=== PATIENT | female | born 1995 | race Caucasian/White ===

== ENCOUNTER 2022-07-23 22:26 | Emergency (ER) | payer MEDICAID ==
--- NOTE | 2022-07-23 22:30 | ERPHSYRPT ---
- History of Present Illness Time Seen by Provider: 07/23/22 22:30 Source: patient Exam Limitations: no limitations Physician History: This is a right handed white female who went to catch a softball with her left hand and it hit her left thumb and wrist. The pain persisted and she was concerned that she may have a dislocated or fractured wrist bone. Occurred: just prior to arrival Method of Injury: direct blow Quality: constant, aching Severity of Pain-Max: moderate Severity of Pain-Current: moderate Extremities Pain Location: wrist: left Modifying Factors: Improves With: movement Associated Symptoms: none Allergies/Adverse Reactions: No Known Drug Allergies Allergy (Unverified 07/23/22 22:31) Home Medications: Sertraline HCl 50 mg [Zoloft 50 mg Tablet] 50 mg PO DAILY 07/23/22 [History] - Nursing Vital Signs Nursing Vital Signs: Initial Vital Signs Temperature 98.2 F 07/23/22 22:32 Pulse Rate 109 H 07/23/22 22:32 Respiratory Rate 18 07/23/22 22:32 Blood Pressure 130/75 07/23/22 22:32 O2 Sat by Pulse Oximetry 100 07/23/22 22:32 Pain Scale Pain Intensity 7 - Physical Exam General Appearance: no apparent distress, alert, anxiety Eyes, Ears, Nose, Throat Exam: normal ENT inspection, moist mucous membranes Neck Exam: normal inspection, non-tender, supple, full range of motion Cardiovascular/Respiratory Exam: chest non-tender, no respiratory distress Abdominal Exam: non-tender Back Exam: normal inspection, normal range of motion, No CVA tenderness, No vertebral tenderness Shoulder Exam: normal inspection, non-tender, no evidence of injury, normal ROM Elbow/Forearm Exam: normal inspection, non-tender, no evidence of injury, normal ROM Wrist Exam: normal inspection, no evidence of injury, soft tissue tenderness Hand Exam: normal inspection, non-tender, no evidence of injury, normal ROM Neuro/Tendon Exam: normal sensation, normal motor functions, normal tendon functions, responds to pain, no evidence tendon injury Mental Status Exam: alert, oriented x 3 Skin Exam: normal color, warm, dry SpO2 Interpretation: normal O2 Delivery: Room Air - Course Nursing assessment & vital signs reviewed: Yes Ordered Tests: Active Orders 24 hr Category Date Time Status Splint STAT Care 07/23/22 23:16 Active WRIST (MIN 3 VIEWS) Stat Exams 07/23/22 Ordered - Progress Progress: unchanged Progress Note: 07/23/22 23:19 X-ray of left wrist reveals no acute fracture or dislocation. Counseled pt/family regarding: diagnosis, need for follow-up, rad results - Departure Departure Disposition: Home Clinical Impression: Contusion of left wrist Condition: Stable Critical Care Time: No Referrals: KEYANNA GONZALEZ [Primary Care Provider] - Follow up/PCP as directed Additional Instructions: Ice bath left hand and wrist 3 times a day for next 48 hours. Use ibuprofen and Tylenol for pain control. Wear the splint for comfort. Follow-up at the [facility] orthopedic clinic Tuesday through Tuesday 8 AM to 10 AM if after 72 hours there is no improvement in your symptoms. It is a walk-in clinic and you do not need to have an appointment.
[2022-07-23 22:40] VITALS: BP 130/75; PULSE 109; O2SAT 100
--- NOTE | 2022-07-24 09:08 | XRAY ---
Indication: Pain following softball injury. Comparison: None 3 view left wrist demonstrates normal bones, articulation, and soft tissues.
== END 2022-07-23 23:31 | disposition home or self-care (01) ==
LOC: ED 22:26
DX: S60.212A Contusion of left wrist, initial encounter (principal); W21.07XA Struck by softball, initial encounter; Y93.64 Activity, baseball; M25.532 Pain in left wrist; M79.645 Pain in left finger(s); Z79.899 Other long term (current) drug therapy
CPT/HCPCS: 73110; 99283; L3908

== ENCOUNTER 2022-12-13 07:40 | Emergency (ER) | payer MEDICAID, OTHER ==
[2022-12-13 07:51] VITALS: BP 122/58
[2022-12-13] MEDS ORDERED: TORAdol 30 mg Injection IM ONE (07:54)
[2022-12-13] MEDS ORDERED: TORAdol 30 mg Injection ONE (07:58)
--- NOTE | 2022-12-13 08:36 | XRAY ---
Indication: Low back pain. No known injury. Comparison: None 3 view lumbar spine demonstrates 5 lumbar segments in normal alignment with vertebral body heights/disc spaces maintained. Incidental tiny L3-L5 Schmorl nodes. No bony, articular, or soft tissue abnormalities.
[2022-12-13] MEDS ORDERED: DECADRON 10MG INJ. IM ONE (08:47)
--- NOTE | 2022-12-13 08:47 | ERPHSYRPT ---
- History of Present Illness Time Seen by Provider: 12/13/22 08:10 Source: patient Exam Limitations: no limitations Patient Subjective Stated Complaint: pt here for lower back pain since last night, worse after getting out of bed this morning and taking steps. no injury, Triage Nursing Assessment: pt alert, helped out of car and in wc, able to take a few steps, holding back at times, skin w/d/p. resp easy, Physician History: Patient is [id number] female presents to emergency department for evaluation of low back pain. Symptoms started yesterday. Patient felt a slight twinge in her low back as she was getting into her vehicle. Later that evening she played with her children and felt somewhat uncomfortable. Today pain worsened as she was getting out of bed. Pain described as an ache that is localized to her low back. Pain primarily in the midline area. Pain reproduced with movement. Pain improved with rest. Pain is localized however she occasionally feels a shooting pain into her lower buttock upper leg area. No fever. No blunt trauma. No falls. No injuries. No recent back procedures. No change in bowel bladder function. No saddle anesthesia. Pain worse with movement and ambulation. Pain improves with rest. Patient denies a history of back pain. She voices no other complaints or concerns at this time. Portions of this note were created with voice recognition technology. There may be grammatical, spelling, punctuation or sound alike errors Timing/Duration: yesterday Method of Injury: bending Quality: other (Ache/shooting pain) Back Pain Location: lumbar spine Severity of Pain-Max: moderate Severity of Pain-Current: mild Modifying Factors: Improves With: movement Associated Symptoms: denies symptoms, No fever, No urinary incontinence, No loss of bowel control, No nausea, No vomiting, No problems urinating, No light- headedness, No numbness in legs/feet, No weakness, No sensory/motor loss, No tingling in legs/feet Previous symptoms: no prior history Allergies/Adverse Reactions: No Known Drug Allergies Allergy (Verified 12/13/22 07:52) Home Medications: Sertraline HCl 50 mg [Zoloft 50 mg Tablet] 50 mg PO DAILY 07/23/22 [History] Norgestimate-Ethinyl Estradiol [Femynor 28 Tablet] 1 ea DAILY 12/13/22 [History] Semaglutide [Ozempic] 2 mg SQ DAILY 12/13/22 [History] Hx Tetanus, Diphtheria Vaccination/Date Given: Yes Hx Influenza Vaccination/Date Given: Yes Hx Pneumococcal Vaccination/Date Given: No Immunizations Up to Date: Yes Travel Risk - International Travel Have you traveled outside of the country in past 3 weeks: No - Coronavirus Screening Are you exhibiting any of the following symptoms?: No Close contact with a COVID-19 positive Pt in past 14-21 Days: No - Vaccine Status Have you recieved a Covid-19 vaccination: No - Review of Systems Constitutional: No Symptoms, No Fever, No Chills Eyes: No Symptoms Ears, Nose, & Throat: No Symptoms Respiratory: No Symptoms, No Cough, No Dyspnea Cardiac: No Symptoms, No Chest Pain, No Edema, No Syncope Abdominal/Gastrointestinal: No Symptoms, No Abdominal Pain, No Nausea, No Vomiting, No Diarrhea Genitourinary Symptoms: No Symptoms, No Dysuria Musculoskeletal: No Symptoms, No Back Pain, No Neck Pain Skin: No Symptoms, No Rash Neurological: No Symptoms, No Dizziness, No Focal Weakness, No Sensory Changes Psychological: No Symptoms Endocrine: No Symptoms Hematologic/Lymphatic: No Symptoms Immunological/Allergic: No Symptoms All Other Systems: Reviewed and Negative - Past Medical History Pertinent Past Medical History: Yes Psycho-Social History: Anxiety, Depression - Past Surgical History Past Surgical History: No - Social History Smoking Status: Never smoker Exposure to second hand smoke: No Drug Use: none Patient Lives Alone: No - Female History Hx Last Menstrual Period: week ago Hx Now: No - Nursing Vital Signs Nursing Vital Signs: Initial Vital Signs Temperature 96.9 F 12/13/22 07:50 Pulse Rate 100 H 12/13/22 07:50 Respiratory Rate 18 12/13/22 07:50 Blood Pressure 122/58 12/13/22 07:50 O2 Sat by Pulse Oximetry 96 12/13/22 07:50 Pain Scale Pain Intensity [Back] 6 Pain Intensity 5 - Physical Exam General Appearance: no apparent distress, alert Eye Exam: PERRL/EOMI, eyes nml inspection Neck Exam: normal inspection, non-tender, supple, full range of motion, No meningismus, No midline tenderness Respiratory Exam: normal breath sounds, lungs clear, No respiratory distress Cardiovascular Exam: regular rate/rhythm, normal heart sounds Gastrointestinal Exam: soft, No tenderness, No mass Back Exam: other (Tenderness to palpation to lumbar paraspinal musculature. Patient observed to experience guarded motion particularly due to low back pain with bilateral lumbar paraspinal musculature spasm) Extremity Exam: normal inspection, normal range of motion, No calf tenderness, No pedal edema Peripheral Pulses: dorsalis-pedis (R): 2+, dorsalis-pedis (L): 2+ Neurologic Exam: alert, oriented x 3, cooperative, inclusion teacher II-XII nml as tested, normal mood/affect, nml station & gait, sensation nml, other (Antalgic gait pattern due to low back pain), No motor deficits Skin Exam: normal color, warm, dry, No rash Lymphatic Exam: No adenopathy SpO2 Interpretation: normal SpO2: 96 O2 Delivery: Room Air - Course Nursing assessment & vital signs reviewed: Yes - Radiology Exams L-Spine X-ray Interpretation: Interpreted by me (No fracture or dislocation. No soft tissue abnormalities. Straightening of lumbar spine positional versus spasm.) Ordered Tests: Active Orders 24 hr Category Date Time Status LUMBAR LIMITED (2 OR 3 VIEWS) Stat Exams 12/13/22 08:15 Completed UA W/RFX UR CULTURE Stat Lab 12/13/22 08:46 Completed Medication Summary Discontinued Medications Generic Name Dose Route Start Last Admin Trade Name Aby PRN Reason Stop Dose Admin Dexamethasone Sodium Phosphate 10 mg 12/13/22 08:47 12/13/22 08:51 Dexamethasone Sod Phosphate 10 Mg/Ml IM 12/13/22 08:48 10 mg STAT ONE Administration Dexamethasone Sodium Phosphate Confirm 12/13/22 08:50 Dexamethasone Sod Phosphate 10 Mg/Ml Administered 12/13/22 08:51 Dose 10 mg .ROUTE .STK-MED ONE Ketorolac Tromethamine 30 mg 12/13/22 07:54 12/13/22 08:00 Ketorolac Tromethamine 30 Mg/Ml Inj IM 12/13/22 07:55 30 mg STAT ONE Administration Ketorolac Tromethamine Confirm 12/13/22 07:58 Ketorolac Tromethamine 30 Mg/Ml Inj Administered 12/13/22 07:59 Dose 30 mg .ROUTE .STK-MED ONE Lab/Rad Data: Laboratory Results 12/13/22 Range/Units 08:46 Urine Color Yellow (Yellow) Urine Appearance Clear (Clear) Urine pH 7.5 (4.6-8.0) Ur Specific Evans 1.010 (1.005-1.030) Urine Protein Negative (Negative) Urine Glucose (UA) Negative (Negative) mg/dL Urine Ketones Negative (Negative) Urine Blood Negative (Negative) Urine Nitrite Negative (Negative) Urine Bilirubin Negative (Negative) Urine Urobilinogen 1.0 A (0.2) mg/dL Ur Leukocyte Esterase Negative (Negative) U Hyaline Cast (Auto) NONE SEEN (0-2) /LPF Urine Microscopic RBC 0-2 (0-5) /HPF Urine Microscopic WBC 0-2 (0-5) /HPF Ur Epithelial Cells None Seen (None Seen) /HPF Urine Bacteria None Seen (None Seen) /HPF Urine Culture Reflexed NO (NO) - Progress Progress: improved Progress Note: Patient is 27-year-old female presents to our ED for evaluation of acute back pain. Physical exam significant for tenderness along the bilateral lumbar paraspinal musculature. Complexity of patient's complaint is moderate. Patient's body habitus/BMI 49.7 is likely contributing factor. X-ray lumbar spine ordered. No fracture or dislocation. No soft tissue abnormalities. Straightening of the lumbar lordosis likely due to muscle spasm. Urinalysis negative for UTI. The results of patient's studies were used in medical decision-making. Patient received Toradol and Decadron for pain control. Patient was positioned in bed supine with a pillow under her knees as a bolster to relieve pressure on her low back as a measure to help alleviate back pain. Plan of care discussed with patient. She agrees to follow-up with her primary care doctor within 48 hours for evaluation. Patient has the ability to access/comply with treatment plan. Level of EM service provided was moderate. Complexity of patient's medical problem is mild to moderate. Complexity of data reviewed is moderate. Risk of complications, morbidity/mortality is moderate. No critical care time. Patient served as an independent historian. Portions of this note were created with voice recognition technology. There may be grammatical, spelling, punctuation or sound alike errors 12/13/22 10:14 Counseled pt/family regarding: diagnosis - Departure Departure Disposition: Home Clinical Impression: Lumbosacral strain, Low back pain, Muscle spasm Condition: Stable Critical Care Time: No Referrals: KEYANNA GONZALEZ [Primary Care Provider] - Follow up/PCP as directed Additional Instructions: Discharge/Care Plan CHINO OLIVO was seen on 12/13/22 in the Emergency Room. The patient was counseled regarding Diagnosis,Lab results, Imaging studies, need for follow up and when to return to the Emergency Room. Prescriptions given: Discharge Note I have spoken with the patient and/or caregivers. I have explained the patient's condition, diagnosis and treatment plan based on the information available to me at this time. I have answered the patient's and/or caregiver's questions and addressed any concerns. The patient and/or caregivers have as good understanding of the patient's diagnosis, condition and treatment plan as can be expected at this point. The vital signs have been stable. The patient's condition is stable and appropriate for discharge from the emergency department. The patient will pursue further outpatient evaluation with the primary care physician or other designated or consulting physician as outlined in the discharge instructions. The patient and/or caregivers are agreeable to this plan of care and follow-up instructions have been explained in detail. The patient and/or caregivers have received these instruction. The patient/and or caregivers are aware that any significant change in condition or worsening of symptoms should prompt an immediate return to this or the closest emergency department or call 911.
[2022-12-13] MEDS ORDERED: DECADRON 10MG INJ. ONE (08:50)
[2022-12-13 09:06] LABS: Appearance Clear (Clear); Bacteria None Seen /HPF (None Seen); Bilirubin Negative (Negative); Blood Negative (Negative); Epithelial Cells None Seen /HPF (None Seen); Glucose, Urine Negative (Negative); Hyaline Casts NONE SEEN /LPF (0-2); Ketones Negative (Negative); Leukocyte Esterase Negative (Negative); Nitrite Negative (Negative); Ph 7.5 (4.6-8.0); Protein,Urine Dip Negative (Negative); RBC 0-2 /HPF (0-5); WBC 0-2 /HPF (0-5)
[2022-12-13 09:09] LABS: ADD URINE CULTURE? NO (NO)
[2022-12-13 09:54] VITALS: PULSE 82
[2022-12-13 10:09] VITALS: O2SAT 96
== END 2022-12-13 10:25 | disposition home or self-care (01) ==
LOC: ED 07:40
DX: S39.012A Strain of muscle, fascia and tendon of lower back, initial encounter (principal); X50.0XXA Overexertion from strenuous movement or load, initial encounter; M62.830 Muscle spasm of back; Z79.85 Long-term (current) use of injectable non-insulin antidiabetic drugs; Z79.899 Other long term (current) drug therapy; Z28.310 Unvaccinated for COVID-19
CPT/HCPCS: 72100; 81001; 96372; 99283; J1100; J1885

== ENCOUNTER 2023-08-02 17:32 | Emergency (ER) | payer OTHER ==
[2023-08-02 18:14] VITALS: TEMP 97.9; O2SAT 100
[2023-08-02 19:11] LABS: HCG URINE TEST NEGATIVE (NEGATIVE)
[2023-08-02 19:15] LABS: Absolute Neutrophil Ct (ANC) 3.48 x10^3/uL (1.4-6.9); BASOPHIL % 0.5 % (0.0-0.4); Basophil (Absolute #) 0.03 x10^3/uL (0-0.4); Eosinophil % 1.5 % (0.00-5.0); Eosinophil (Absolute #) 0.09 x10^3/uL (0-0.5); Hematocrit 39.9 % (35-47); Hemoglobin 12.4 g/dL (12.0-16.0); IMMATURE GRAN # 0.05 x10^3u/L (0.00-0.03); IMMATURE GRAN % 0.8 % (0.00-0.4); Lymphocyte (Absolute #) 1.98 x10^3/uL (1.0-4.6); Lymphocytes % 32.2 % (24.0-44.0); Mean Cell Volume 86.9 fL (78-100); Mean Corpuscular Hgb Concent. 31.1 g/dL (32-36); Mean Platelet Volume 9.3 fL (7.5-11.0); Monocyte (Absolute #) 0.51 x10^3/uL (0.0-1.3); Monocytes % 8.3 % (0.0-12.0); Neutrophil % 56.7 % (36.0-66.0); Platelet Count 307 x10^3/uL (150-450); Red Blood Count 4.59 x10^6/uL (4.1-5.4); Red Cell Distribution Width 13.3 % (11.5-14.0); White Blood Count 6.1 x10^3/uL (4.0-10.5)
[2023-08-02 19:15] LABS: Appearance Cloudy (Clear); Bilirubin Negative (Negative); Blood Negative (Negative); Epithelial Cells Moderate /HPF (None Seen); Glucose, Urine Negative (Negative); Hyaline Casts NONE SEEN /LPF (0-2); Ketones Trace (Negative); Leukocyte Esterase Trace (Negative); Nitrite Negative (Negative); Ph 5.5 (4.6-8.0); Protein,Urine Dip Trace (Negative); RBC 0-2 /HPF (0-5); Specific Gravity >=1.030 (1.005-1.030)
[2023-08-02 19:17] LABS: ADD URINE CULTURE? NO (NO); Bacteria Rare /HPF (None Seen)
[2023-08-02 19:30] LABS: ALBUMIN 3.8 g/dL (3.5-5.0); ALKALINE PHOSPHATASE 79 U/L (38-126); ANION GAP 12.4 MEQ/L (5-15); BLOOD UREA NITROGEN 14 mg/dL (7-17); CHLORIDE 103 mmol/L (98-107); Calcium 8.9 mg/dL (8.4-10.2); Carbon Dioxide 26 mmol/L (22-30); Creatinine 1 0.65 mg/dL (0.52-1.04); EST GLOMERULAR FILTRATION RATE > 60.0 ML/MIN; Glucose 88 mg/dL (74-106); Potassium 3.6 mmol/L (3.5-5.1); SGOT/AST 23 U/L (14-36); SGPT/ALT 21 U/L (0-35); SODIUM 138 mmol/L (137-145); Total Protein 7.1 g/dL (6.3-8.2)
--- NOTE | 2023-08-02 20:48 | ERPHSYRPT ---
- History of Present Illness Time Seen by Provider: 08/02/23 18:20 Historian: patient Exam Limitations: no limitations Patient Subjective Stated Complaint: pt here for right sided abd pain today with nausea, no fever, states sharp stabbing pain Triage Nursing Assessment: pt alert, resp easy, skin w/d/p.walked in, abd soft, bs x4 , tender to touch Physician History: Patient is a 28-year-old female presents to our ED for evaluation of 1 day history of right lower quadrant pain. Pain described as a sharp stabbing sensa tion. No trauma. No fever. Patient has no urinary complaints. Mild nausea. No vomiting. No diarrhea. No rash. Pain worse with palpation. Pain improved with rest. Patient voices no other complaints or concerns at this time. Portions of this note were created with voice recognition technology. There may be grammatical, spelling, punctuation or sound alike errors Timing/Duration: today Activities at Onset: none Quality: aching Abdominal Pain Onset Location: RLQ Pain Radiation: no radiation Severity of Pain-Max: moderate Severity of Pain-Current: mild Modifying Factors: Improves With: nothing Associated Symptoms: nausea Previous symptoms: no prior history Allergies/Adverse Reactions: No Known Drug Allergies Allergy (Verified 08/02/23 18:12) Home Medications: Sertraline HCl 50 mg [Zoloft 50 mg Tablet] 50 mg PO DAILY 07/23/22 [History] norgestimate-ethinyl estradioL [Femynor 28 Tablet] 1 ea DAILY 12/13/22 [History] Hx Tetanus, Diphtheria Vaccination/Date Given: Yes Hx Influenza Vaccination/Date Given: No Hx Pneumococcal Vaccination/Date Given: No Immunizations Up to Date: Yes Travel Risk - International Travel Have you traveled outside of the country in past 3 weeks: No - Coronavirus Screening Are you exhibiting any of the following symptoms?: No Close contact with a COVID-19 positive Pt in past 14-21 Days: No - Vaccine Status Have you recieved a Covid-19 vaccination: No - Review of Systems Constitutional: No Symptoms, No Fever, No Chills Eyes: No Symptoms Ears, Nose, & Throat: No Symptoms Respiratory: No Symptoms, No Cough, No Dyspnea Cardiac: No Symptoms, No Chest Pain, No Edema, No Syncope Abdominal/Gastrointestinal: No Symptoms, No Abdominal Pain, No Nausea, No Vomiting, No Diarrhea Genitourinary Symptoms: No Symptoms, No Dysuria Musculoskeletal: No Symptoms, No Back Pain, No Neck Pain Skin: No Symptoms, No Rash Neurological: No Symptoms, No Dizziness, No Focal Weakness, No Sensory Changes Psychological: No Symptoms Endocrine: No Symptoms Hematologic/Lymphatic: No Symptoms Immunological/Allergic: No Symptoms All Other Systems: Reviewed and Negative - Past Medical History Pertinent Past Medical History: No Psycho-Social History: Anxiety, Depression - Past Surgical History Past Surgical History: No - Social History Smoking Status: Never smoker Exposure to second hand smoke: No Drug Use: none Patient Lives Alone: No - Female History Hx Last Menstrual Period: week agp Hx Now: No - Nursing Vital Signs Nursing Vital Signs: Initial Vital Signs Temperature 97.9 F 08/02/23 18:13 Pulse Rate 87 08/02/23 18:13 Respiratory Rate 18 08/02/23 18:13 Blood Pressure 139/83 08/02/23 18:13 O2 Sat by Pulse Oximetry 100 08/02/23 18:13 Pain Scale Pain Intensity 5 - Physical Exam General Appearance: no apparent distress, alert Eye Exam: PERRL/EOMI, eyes nml inspection Ears, Nose, Throat Exam: normal ENT inspection, pharynx normal, moist mucous membranes Neck Exam: normal inspection, non-tender, supple, full range of motion Respiratory Exam: normal breath sounds, lungs clear, airway intact, No respiratory distress Cardiovascular Exam: regular rate/rhythm, normal heart sounds, normal peripheral pulses Gastrointestinal/Abdomen Exam: soft, No tenderness, No mass Back Exam: normal inspection, normal range of motion, No CVA tenderness, No vertebral tenderness Extremity Exam: normal inspection, normal range of motion, pelvis stable Neurologic Exam: alert, oriented x 3, cooperative, normal mood/affect, nml cerebellar function, sensation nml, No motor deficits Skin Exam: normal color, warm, dry Lymphatic Exam: No adenopathy SpO2 Interpretation: normal SpO2: 100 O2 Delivery: Room Air - Course Nursing assessment & vital signs reviewed: Yes - CT Exams Abdomen/Pelvis CT Interpretation: Tele-radiologist Report (No comps. Normal appendectomy. Mild diverticulosis. Otherwise negative abdomen pelvis) Ordered Tests: Active Orders 24 hr Category Date Time Status IV Insertion STAT Care 08/02/23 18:55 Active ABDOMEN AND PELVIS W/0 CONTRAS [CT] Stat Exams 08/02/23 18:56 Taken CBC W DIFF Stat Lab 08/02/23 19:12 Completed CMP Stat Lab 08/02/23 19:12 Completed HCG QUALITATIVE, URINE Stat Lab 08/02/23 19:00 Completed UA W/RFX UR CULTURE Stat Lab 08/02/23 19:00 Completed Lab/Rad Data: Laboratory Result Diagrams 08/02/23 19:12 08/02/23 19:12 Laboratory Results 08/02/23 08/02/23 08/02/23 Range/Units 19:12 19:12 19:00 WBC 6.1 (4.0-10.5) x10^3/uL RBC 4.59 (4.1-5.4) x10^6/uL Hgb 12.4 (12.0-16.0) g/dL Hct 39.9 (35-47) % MCV 86.9 (78-100) fL MCH 27.0 (26-32) pg MCHC 31.1 L (32-36) g/dL RDW 13.3 (11.5-14.0) % Plt Count 307 (150-450) x10^3/uL MPV 9.3 (7.5-11.0) fL Gran % 56.7 (36.0-66.0) % Immature Gran % (Auto) 0.8 H (0.00-0.4) % Nucleat RBC Rel Count 0.0 (0.00-0.1) % Eos # (Auto) 0.09 (0-0.5) x10^3/uL Immature Gran # (Auto) 0.05 H (0.00-0.03) x10^3u/L Absolute Lymphs (auto) 1.98 (1.0-4.6) x10^3/uL Absolute Monos (auto) 0.51 (0.0-1.3) x10^3/uL Absolute Nucleated RBC 0.00 (0.00-0.01) x10^3u/L Lymphocytes % 32.2 (24.0-44.0) % Monocytes % 8.3 (0.0-12.0) % Eosinophils % 1.5 (0.00-5.0) % Basophils % 0.5 (0.0-0.4) % Absolute Granulocytes 3.48 (1.4-6.9) x10^3/uL Basophils # 0.03 (0-0.4) x10^3/uL Sodium 138 (137-145) mmol/L Potassium 3.6 (3.5-5.1) mmol/L Chloride 103 (98-107) mmol/L Carbon Dioxide 26 (22-30) mmol/L Anion Gap 12.4 (5-15) MEQ/L BUN 14 (7-17) mg/dL Creatinine 0.65 (0.52-1.04) mg/dL Estimated GFR > 60.0 ML/MIN Glucose 88 (74-106) mg/dL Calcium 8.9 (8.4-10.2) mg/dL Total Bilirubin 0.30 (0.2-1.3) mg/dL AST 23 (14-36) U/L ALT 21 (0-35) U/L Alkaline Phosphatase 79 (38-126) U/L Serum Total Protein 7.1 (6.3-8.2) g/dL Albumin 3.8 (3.5-5.0) g/dL Urine Color (Yellow) Urine Appearance (Clear) Urine pH (4.6-8.0) Ur Specific Gaines (1.005-1.030) Urine Protein (Negative) Urine Glucose (UA) (Negative) mg/dL Urine Ketones (Negative) Urine Blood (Negative) Urine Nitrite (Negative) Urine Bilirubin (Negative) Urine Urobilinogen (0.2) mg/dL Ur Leukocyte Esterase (Negative) U Hyaline Cast (Auto) (0-2) /LPF Urine Microscopic RBC (0-5) /HPF Urine Microscopic WBC (0-5) /HPF Ur Epithelial Cells (None Seen) /HPF Urine Bacteria (None Seen) /HPF Urine Culture Reflexed (NO) Urine HCG, Qual NEGATIVE (NEGATIVE) 08/02/23 Range/Units 19:00 WBC (4.0-10.5) x10^3/uL RBC (4.1-5.4) x10^6/uL Hgb (12.0-16.0) g/dL Hct (35-47) % MCV (78-100) fL MCH (26-32) pg MCHC (32-36) g/dL RDW (11.5-14.0) % Plt Count (150-450) x10^3/uL MPV (7.5-11.0) fL Gran % (36.0-66.0) % Immature Gran % (Auto) (0.00-0.4) % Nucleat RBC Rel Count (0.00-0.1) % Eos # (Auto) (0-0.5) x10^3/uL Immature Gran # (Auto) (0.00-0.03) x10^3u/L Absolute Lymphs (auto) (1.0-4.6) x10^3/uL Absolute Monos (auto) (0.0-1.3) x10^3/uL Absolute Nucleated RBC (0.00-0.01) x10^3u/L Lymphocytes % (24.0-44.0) % Monocytes % (0.0-12.0) % Eosinophils % (0.00-5.0) % Basophils % (0.0-0.4) % Absolute Granulocytes (1.4-6.9) x10^3/uL Basophils # (0-0.4) x10^3/uL Sodium (137-145) mmol/L Potassium (3.5-5.1) mmol/L Chloride (98-107) mmol/L Carbon Dioxide (22-30) mmol/L Anion Gap (5-15) MEQ/L BUN (7-17) mg/dL Creatinine (0.52-1.04) mg/dL Estimated GFR ML/MIN Glucose (74-106) mg/dL Calcium (8.4-10.2) mg/dL Total Bilirubin (0.2-1.3) mg/dL AST (14-36) U/L ALT (0-35) U/L Alkaline Phosphatase (38-126) U/L Serum Total Protein (6.3-8.2) g/dL Albumin (3.5-5.0) g/dL Urine Color Yellow (Yellow) Urine Appearance Cloudy A (Clear) Urine pH 5.5 (4.6-8.0) Ur Specific Gaines >=1.030 A (1.005-1.030) Urine Protein Trace A (Negative) Urine Glucose (UA) Negative (Negative) mg/dL Urine Ketones Trace A (Negative) Urine Blood Negative (Negative) Urine Nitrite Negative (Negative) Urine Bilirubin Negative (Negative) Urine Urobilinogen 1.0 A (0.2) mg/dL Ur Leukocyte Esterase Trace A (Negative) U Hyaline Cast (Auto) NONE SEEN (0-2) /LPF Urine Microscopic RBC 0-2 (0-5) /HPF Urine Microscopic WBC 3-5 (0-5) /HPF Ur Epithelial Cells Moderate A (None Seen) /HPF Urine Bacteria Rare A (None Seen) /HPF Urine Culture Reflexed NO (NO) Urine HCG, Qual (NEGATIVE) - Progress Progress: improved Progress Note: Patient is a 28-year-old female presents to our ED for evaluation of right lower quadrant pain. Patient thoroughly assessed. Patient's pain is not emanating from the pelvis. Patient's pain is right at McBurney's point. CT negative for appendicitis. CBC CMP essentially unremarkable. No leukocytosis. Urinalysis negative for urinary tract infection. Will discharge home. Patient resting comfortably. No active abdominal pain at this time. Patient voices no other complaints or concerns at this time. Portions of this note were created with voice recognition technology. There may be grammatical, spelling, punctuation or sound alike errors Complexity of problems addressed is moderate acute complicated No critical care time Complexity of data reviewed and analyzed is moderate. Test ordered test reviewed and analyzed. Clinical correlation made between history and physical examination. Risk of complication and or risk of morbidity/mortality of patient management is moderate. A prescription for Toradol forwarded to patient's pharmacy. Vital stable. Plan of care established via shared decision making. Time spent to discharge patient is approximately 20 minutes. No social determinants of health present to impede follow-up. Portions of this note were created with voice recognition technology. There may be grammatical, spelling, punctuation or sound alike errors 08/02/23 20:49 Counseled pt/family regarding: lab results, diagnosis, need for follow-up, rad results - Departure Departure Disposition: Home Clinical Impression: Right lower quadrant pain, Diverticulosis Condition: Stable Critical Care Time: No Referrals: KEYANNA GONZALEZ [Primary Care Provider] - Follow up/PCP as directed Additional Instructions: Discharge/Care Plan CHINO OLIVO was seen on 08/02/23 in the Emergency Room. The patient was counseled regarding Diagnosis,Lab results, Imaging studies, need for follow up and when to return to the Emergency Room. Prescriptions given: Discharge Note I have spoken with the patient and/or caregivers. I have explained the patient's condition, diagnosis and treatment plan based on the information available to me at this time. I have answered the patient's and/or caregiver's questions and addressed any concerns. The patient and/or caregivers have as good understanding of the patient's diagnosis, condition and treatment plan as can be expected at this point. The vital signs have been stable. The patient's condition is stable and appropriate for discharge from the emergency department. The patient will pursue further outpatient evaluation with the primary care physician or other designated or consulting physician as outlined in the discharge instructions. The patient and/or caregivers are agreeable to this plan of care and follow-up instructions have been explained in detail. The patient and/or caregivers have received these instruction. The patient/and or caregivers are aware that any significant change in condition or worsening of symptoms shou ld prompt an immediate return to this or the closest emergency department or call 911. Prescriptions: Ketorolac Trometh 10 mg Tab [TORAdol 10 MG TABLET] 10 mg PO TID 5 Days #15 tablet
[2023-08-02 20:49] VITALS: BP 116/76; PULSE 86; RESP 15
--- NOTE | 2023-08-03 08:40 | XRAY ---
Indication: Right lower quadrant pain. Appendicitis. Multiple contiguous axial images obtained through the abdomen and pelvis without contrast. Comparison: None Lung bases clear. Heart not enlarged. Noncontrasted stomach and bowel loops appear nonobstructed with normal-appearing appendix. Minimal scattered colonic diverticulosis without diverticulitis. Mild diffuse fatty liver. No free fluid/air. Remaining liver, gallbladder, pancreas, spleen, adrenal glands, kidneys, ureters, bladder, uterus, and aorta are unremarkable for noncontrast exam. Osseous structures intact. No ventral or inguinal hernias. Impression: 1. Colonic diverticulosis and fatty liver. 2. Remaining CT abdomen/pelvis without contrast exam is negative.
== END 2023-08-02 21:08 | disposition home or self-care (01) ==
LOC: ED 17:32
DX: K57.90 Diverticulosis of intestine, part unspecified, without perforation or abscess without bleeding (principal); R10.31 Right lower quadrant pain; Z79.899 Other long term (current) drug therapy; Z28.310 Unvaccinated for COVID-19
CPT/HCPCS: 36415; 74176; 80053; 81001; 81025; 85025; 99283

== ENCOUNTER 2024-12-14 20:12 | Emergency (ER) | payer SELFPAY ==
[2024-12-14 20:28] VITALS: BP 123/86; TEMP 98.1
[2024-12-14] MEDS ORDERED: DUONEB 0.5-3 MG/3 ml Neb IH ONE (20:54)
[2024-12-14] MEDS: DUONEB 0.5-3 MG/3 ml Neb IH ONE (20:56)
[2024-12-14] MEDS ORDERED: HYDROCODONE-ACETAMIN 2.5-108/5 ML SOLUTION ONE (21:02)
[2024-12-14] MEDS ORDERED: DELTASONE 20 MG ONE (21:02)
[2024-12-14] MEDS: DELTASONE 20 MG PO ONE (21:07)
[2024-12-14] MEDS: HYDROCODONE-ACETAMIN 2.5-108/5 ML SOLUTION PO STA (21:07)
[2024-12-14 21:12] VITALS: PULSE 100; RESP 16; O2SAT 96
[2024-12-14 21:38] LABS: INFLUENZA A NEGATIVE (NEGATIVE); INFLUENZA B NEGATIVE (NEGATIVE); RESPIRATORY SYNCTIAL VIRUS NEGATIVE (NEGATIVE); SARS-CoV-2 Xpert Express NEGATIVE (NEGATIVE)
[2024-12-14] MEDS ORDERED: Zithromax 250 MG TABLET ONE (21:48)
[2024-12-14] MEDS: Zithromax 250 MG TABLET PO ONE (21:50)
--- NOTE | 2024-12-14 21:53 | ERPHSYRPT ---
- History of Present Illness Time Seen by Provider: 12/14/24 20:20 Source: patient Exam Limitations: no limitations Patient Subjective Stated Complaint: pt c/o of being sick for approx 3 weeks which she believes started out as a cold and now has a worsening cough that caus es chest/lung pain and her whole body hurts, headache, fever, and vomiting, pt states that she hasn't eaten in 4 days Triage Nursing Assessment: Pt brought self to the ER, pt walked slowly into the room and appeared weak, tachycardic, rates overall pain as 7/10, pulses normal, cough, afebrile at this time, headache, body aches, began vomiting 4-5 days ago when she gets to coughing real hard Physician History: 29-year-old fairly healthy female presented in the ER with 2 to 3 weeks history of cough congestion with progressive worsening. Patient reports she was seen outpatient and has received a shot of steroid and symptomatic treatment with no significant relief. Reports worsening cough for the last 4 to 5 days with aches and pains all over. Coughing up thick clear to yellow sputum. No shortness of breath. Reports having low-grade temperature off-and-on since yesterday. Because of repeated coughing having generalized chest soreness. Allergies/Adverse Reactions: No Known Drug Allergies Allergy (Verified 12/14/24 20:28) Home Medications: Sertraline HCl 50 mg [Zoloft 50 mg Tablet] 100 mg PO DAILY 07/23/22 [History] Hx Tetanus, Diphtheria Vaccination/Date Given: Yes Hx Influenza Vaccination/Date Given: No Hx Pneumococcal Vaccination/Date Given: No Travel Risk - International Travel Have you traveled outside of the country in past 3 weeks: No - Emerging Infectious Disease Symptoms: Cough: New Onset, Fever, Headaches/Body Aches/, Shortness of Breath, Vomitting - Review of Systems Constitutional: Fever, Chills, Fatigue Eyes: No Symptoms Ears, Nose, & Throat: Throat Swelling Respiratory: Cough Cardiac: No Symptoms Abdominal/Gastrointestinal: Vomiting Musculoskeletal: Myalgias Neurological: Headache Psychological: No Symptoms Hematologic/Lymphatic: No Symptoms - Past Medical History Pertinent Past Medical History: No Psycho-Social History: Anxiety, Depression - Past Surgical History Past Surgical History: No - Female History Hx Last Menstrual Period: approx a month Hx Now: No (IUD placed in August) - Social History Smoking Status: Never smoker Exposure to second hand smoke: No Drug Use: none Patient Lives Alone: No - Social Determinants of Health Will the patient participate in the screening: Yes Do you worry about a steady place to live?: No Do you have any problems with any of the following?: No known problems In the past 12 months,have you had to go without utilities?: No Transportation Issues: No Has anyone in your support network made you feel unsafe?: No Have you or anyone in your house had to go without enough: No - Nursing Vital Signs Nursing Vital Signs: Initial Vital Signs Temperature 98.1 F 12/14/24 20:19 Pulse Rate 116 H 12/14/24 20:19 Blood Pressure 123/86 12/14/24 20:19 O2 Sat by Pulse Oximetry 94 L 12/14/24 20:19 Pain Scale Pain Intensity 7 - Physical Exam General Appearance: no apparent distress, alert Eye Exam: PERRL/EOMI Ears, Nose, Throat Exam: moist mucous membranes, pharyngeal erythema Neck Exam: normal inspection, non-tender, supple, full range of motion Respiratory Exam: normal breath sounds, lungs clear, airway intact Cardiovascular Exam: normal heart sounds, tachycardia Gastrointestinal/Abdomen Exam: soft, normal bowel sounds, No tenderness Back Exam: normal inspection, normal range of motion Extremity Exam: normal inspection, normal range of motion Neurologic Exam: alert, oriented x 3, cooperative Skin Exam: normal color SpO2 Interpretation: normal SpO2: 96 O2 Delivery: Room Air Ordered Tests: Active Orders 24 hr Category Date Time Status CHEST 1 VIEW (PORTABLE) Stat Exams 12/14/24 20:50 Taken Respiratory Therapy Assessment DAILY RT 12/14/24 21:10 Active Medication Summary Discontinued Medications Generic Name Dose Route Start Last Admin Trade Name Joshuaq PRN Reason Stop Dose Admin Hydrocodone Bitart/Acetaminophen 10 ml 12/14/24 20:51 12/14/24 21:07 Hydrocodone/Acetaminophen 5 Ml Udcup PO 12/14/24 20:52 10 ml STAT STA Administration Hydrocodone Bitart/Acetaminophen Confirm 12/14/24 21:02 Hydrocodone/Acetaminophen 5 Ml Udcup Administered 12/14/24 21:03 Dose 10 ml .ROUTE .STK-MED ONE Albuterol/Ipratropium 3 ml 12/14/24 20:50 12/14/24 20:56 Ipratropium/Albuterol Sulfate 3 Ml Ampul.Neb IH 12/14/24 20:51 3 ml STAT ONE Administration Albuterol/Ipratropium Confirm 12/14/24 20:54 Ipratropium/Albuterol Sulfate 3 Ml Ampul.Neb Administered 12/14/24 20:55 Dose 3 ml IH .STK-MED ONE Azithromycin 500 mg 12/14/24 21:37 12/14/24 21:50 Azithromycin 250 Mg Tablet PO 12/14/24 21:38 500 mg STAT ONE Administration Azithromycin Confirm 12/14/24 21:48 Azithromycin 250 Mg Tablet Administered 12/14/24 21:49 Dose 500 mg .ROUTE .STK-MED ONE Prednisone 60 mg 12/14/24 20:50 12/14/24 21:07 Prednisone 20 Mg Tablet PO 12/14/24 20:51 60 mg STAT ONE Administration Prednisone Confirm 12/14/24 21:02 Prednisone 20 Mg Tablet Administered 12/14/24 21:03 Dose 60 mg .ROUTE .STK-MED ONE Lab/Rad Data: Laboratory Results 12/14/24 Range/Units 21:00 Influenza Type A Ag NEGATIVE (NEGATIVE) Influenza Type B Ag NEGATIVE (NEGATIVE) RSV (PCR) NEGATIVE (NEGATIVE) SARS-CoV-2 (PCR) NEGATIVE (NEGATIVE) - Progress Progress: improved, re-examined Air Movement: good Progress Note: 12/14/24 21:59 29-year-old is evaluated in the ER for 2 to 3 weeks history of cough congestion symptoms with progressive worsening and now having off-and-on fever chills and bodyaches. Patient is not in any distress, lungs clear to auscultation. She is given DuoNeb and symptomatic treatment for cough, on reevaluation feeling much better. Chest x-ray showed right-sided airspace disease/infiltrates reviewed by me, official report is pending, has negative COVID flu and RSV. Patient is also given a dose of oral steroid and Zithromax 500 mg and will continue with short course of steroid, Zithromax and albuterol inhaler to go home along with cough medication. I believe patient has viral etiologies initially followed by bacterial colonization's. Do not think patient needs any other workup, stable for discharge. Discussed the results of workup, plan of care and signs symptoms of worsening needing return to ER which she seems understanding. Stable for discharge. = Blood Culture(s) Obtained: Yes Antibiotics given: Yes Counseled pt/family regarding: lab results, diagnosis, need for follow-up, rad results Medical Desision Making - Diagnostic Testing Diagnostic test were ordered, analyzed, and reviewed by me: Yes Radiological Interpretation: Interpreted by me, Reviewed by me - Risk of complications The pt has a mod risk of morbidity or mortality based on: Need for prescription drug management - Departure Departure Disposition: Home Clinical Impression: URI with cough and congestion, Pneumonia Condition: Stable Critical Care Time: No Referrals: KEYANNA GONZALEZ [Primary Care Provider] - Follow up with PCP 1 day Instructions: Cough, Adult (DC), Pneumonia, Adult (DC) Additional Instructions: Follow-up with primary care for reevaluation. Use inhaler and cough medications as needed. Return to ER for worsening cough or if having difficulty breathing, persistent high-grade fever chills etc. Prescriptions: Albuterol Sulfate [Albuterol Sulfate Hfa] 8.5 gm IH Q6H PRN 14 Days #1 inh PRN Reason: Cough Prednisone 20 mg [Deltasone 20 mg] 60 mg PO DAILY 5 Days #15 tablet Azithromycin 250 mg [Zithromax 250 MG TABLET] 250 mg PO DAILY 4 Days #4 tablet
--- NOTE | 2024-12-15 08:20 | XRAY ---
Indication: Cough. Comparison: None Portable chest demonstrates minimal right base infiltrate/atelectasis. Remaining heart, lungs, and bony thorax unremarkable.
== END 2024-12-14 22:32 | disposition home or self-care (01) ==
LOC: ED 20:12
DX: J06.9 Acute upper respiratory infection, unspecified (principal); J18.9 Pneumonia, unspecified organism; R05.1 Acute cough; M79.10 Myalgia, unspecified site; Z79.52 Long term (current) use of systemic steroids; Z79.899 Other long term (current) drug therapy
CPT/HCPCS: 0241U; 71045; 94640; 99285; 99284; A9270-GY